=== PATIENT | female | born 1970 | race Caucasian/White ===

== ENCOUNTER 2017-10-25 10:09 | Inpatient (IN) | payer OTHER ==
[~2017-10-25 10:09] MED LIST: SOD CHLORIDE 0.9% 1,000 ML IV; VANCOMYCIN 1 GM 250 ML IVPB
[2017-10-25 11:38] LABS: ADD MAN DIFF? NO
[2017-10-25 11:47] LABS: BASOPHILS % 0.6 % (0.0-2.0); EOSINOPHILS # 0.2 10^3/ul (0.0-0.5); EOSINOPHILS % 2.5 % (0.0-7.0); HEMATOCRIT 37.3 % (37.0-47.0); HEMOGLOBIN 12.5 g/dl (12.0-16.0); LYMPHOCYTES # 2.4 10^3/ul (0.8-2.9); LYMPHOCYTES % 35.7 % (15.0-51.0); MEAN CORPUSCULAR HEMOGLOBIN 30.3 pg (29.0-33.0); MEAN CORPUSCULAR HGB CONC 33.5 g/dl (32.0-37.0); MEAN CORPUSCULAR VOLUME 90.5 fl (82.0-101.0); MONOCYTE # 0.6 10^3/ul (0.3-0.9); MONOCYTES % 9.3 % (0.0-11.0); NEUTROPHIL # 3.5 10^3/ul (1.6-7.5); NEUTROPHILS % 51.8 % (39.0-77.0); PLATELET COUNT 340 10^3/UL (140-415); RED BLOOD COUNT 4.12 10^6/ul (4.20-5.40); RED CELL DISTRIBUTION WIDTH 11.9 % (11.5-14.5)
[2017-10-25 11:47] LABS: WHITE BLOOD COUNT 6.8 10^3/ul (4.8-10.8)
[2017-10-25 12:04] LABS: ALANINE AMINOTRANSFERASE 27 IU/L (13-69); ALBUMIN 3.8 g/dl (3.3-4.9); ALBUMIN/GLOBULIN RATIO 1.31; ALKALINE PHOSPHATASE 56 IU/L (42-121); ANION GAP 10 (8-16); ASPARTATE AMINO TRANSFERASE 21 IU/L (15-46); BILIRUBIN,INDIRECT 0.6 mg/dl (0-1.1); BILIRUBIN,TOTAL 0.6 mg/dl (0.2-1.3); BLOOD UREA NITROGEN 14 mg/dl (7-20); CALCIUM 8.9 mg/dl (8.4-10.2); CARBON DIOXIDE 27 mmol/L (21-31); CHLORIDE 108 mmol/L (97-110); CREATININE 0.56 mg/dl (0.44-1.00); GLUCOSE 92 mg/dl (70-220); POTASSIUM 3.8 mmol/L (3.5-5.1); SODIUM 141 mmol/L (135-144); TOTAL PROTEIN 6.7 g/dl (6.1-8.1)
[2017-10-25 12:05] LABS: INR 0.97
[2017-10-25 12:07] LABS: PARTIAL THROMBOPLASTIN TIME 27.8 Sec (25.0-35.0)
[2017-10-25] MEDS ORDERED: FENTAnyl 50 MCG/ML VIAL (13:53)
[2017-10-25] MEDS ORDERED: ROCURONIUM 50 MG INJ (13:57)
[2017-10-25] MEDS ORDERED: PROPOFOL 20 ML (13:58)
[2017-10-25] MEDS ORDERED: LIDOCAINE 2% (SDV) 5 ML INJ (13:58)
[2017-10-25] MEDS ORDERED: DEXAMETHASONE 4 MG/ML 1 ML INJ (13:59)
[2017-10-25] MEDS ORDERED: CEFAZOLIN 1 GM INJ (13:59)
[2017-10-25] MEDS ORDERED: ONDANSETRON 4 MG INJ (13:59)
[2017-10-25] MEDS ORDERED: SUGAMMADEX SODIUM 200 MG/2 ML VIAL IV (14:00)
[2017-10-25] MEDS ORDERED: ACETAMINOPHEN 1000MG/100ML IV 100 ML (14:06)
[2017-10-25] MEDS ORDERED: HYDROmorphONE 2 MG/ML SYG (14:07)
[2017-10-25] MEDS ORDERED: MIDAZOLAM 1 MG/ML 2 ML INJ (14:31)
[2017-10-25] MEDS ORDERED: CLINDAMYCIN 600 MG/D5W (PMX) 50 ML IVPB (14:49)
[2017-10-25] MEDS ORDERED: GLYCOPYRROLATE 0.4 MG INJ (15:12)
[2017-10-25] MEDS ORDERED: EPHEDrine SULFATE 50 MG/5 ML SYG (15:16)
[2017-10-25] MEDS ORDERED: DIPHENHYDRAMINE 50 MG INJ IV (16:30)
[2017-10-25] MEDS ORDERED: ONDANSETRON 4 MG INJ IV ×2 (16:30)
[2017-10-25] MEDS ORDERED: HYDROmorphONE 0.2 MG/ML PCA IV (16:30)
[2017-10-25] MEDS ORDERED: FENTAnyl 50 MCG/ML VIAL IV ×2 (16:30)
[2017-10-25] MEDS ORDERED: HYDROmorphONE 1 MG/5 ML IV SYRINGE IV ×2 (16:30)
[2017-10-25] MEDS ORDERED: morphine 1 MG/ML 30 ML (PCA) IV ×2 (16:30)
[2017-10-25] MEDS ORDERED: NALOXONE (0.4 MG/ML) INJ IV (16:30)
[2017-10-25] MEDS: METOCLOPRAMIDE 10 MG INJ IV (16:47)
[2017-10-25] MEDS: ONDANSETRON 4 MG INJ IV ×2 (16:48→22:13)
[2017-10-25] MEDS: KETOROLAC 30 MG INJ IV ×3 (16:49→22:13)
[2017-10-25] MEDS ORDERED: HALOPERIDOL 5 MG INJ IV (17:00)
[2017-10-25] MEDS: HYDROmorphONE 0.2 MG/ML PCA IV (17:25)
[2017-10-25] MEDS: D5W-0.45 NACL + KCL 20 MEQ 1,000 ML IV (18:23)
[2017-10-26] MEDS: D5W-0.45 NACL + KCL 20 MEQ 1,000 ML IV ×5 (00:11→21:44)
[2017-10-26] MEDS: ACETAMINOPHEN 1000MG/100ML IV 100 ML IVPB ×2 (00:11→07:42)
[2017-10-26] MEDS: KETOROLAC 30 MG INJ IV ×3 (05:10→22:54)
[2017-10-26] MEDS: METOCLOPRAMIDE 10 MG INJ IV (05:10)
[2017-10-26] MEDS: ONDANSETRON 4 MG INJ IV (07:43)
[2017-10-26 11:44] LABS: ADD MAN DIFF? NO
[2017-10-26 11:48] LABS: ABNORMAL IP MESSAGE 1; BASOPHILS % 0.1 % (0.0-2.0); HEMATOCRIT 36.6 % (37.0-47.0); HEMOGLOBIN 12.3 g/dl (12.0-16.0); LYMPHOCYTES # 2.1 10^3/ul (0.8-2.9); MEAN CORPUSCULAR HEMOGLOBIN 30.9 pg (29.0-33.0); MEAN CORPUSCULAR HGB CONC 33.6 g/dl (32.0-37.0); MEAN PLATELET VOLUME 10.4 fl (7.4-10.4); MONOCYTE # 1.8 10^3/ul (0.3-0.9); MONOCYTES % 10.1 % (0.0-11.0); NEUTROPHIL # 13.4 10^3/ul (1.6-7.5); NEUTROPHILS % 77.4 % (39.0-77.0); PLATELET COUNT 370 10^3/UL (140-415); RED BLOOD COUNT 3.98 10^6/ul (4.20-5.40); RED CELL DISTRIBUTION WIDTH 11.8 % (11.5-14.5)
[2017-10-26 11:48] LABS: WHITE BLOOD COUNT 17.3 10^3/ul (4.8-10.8)
[2017-10-26 12:07] LABS: PARTIAL THROMBOPLASTIN TIME 25.2 Sec (25.0-35.0); PROTIME 13.3 Sec (11.9-14.9)
[2017-10-26 12:13] LABS: ANION GAP 10 (8-16); CALCIUM 8.9 mg/dl (8.4-10.2); CARBON DIOXIDE 27 mmol/L (21-31); CHLORIDE 108 mmol/L (97-110); CREATININE 0.55 mg/dl (0.44-1.00); GLUCOSE 95 mg/dl (70-220); MAGNESIUM 1.9 mg/dl (1.7-2.5); PHOSPHORUS 3.2 mg/dl (2.5-4.9); POTASSIUM 3.9 mmol/L (3.5-5.1); SODIUM 141 mmol/L (135-144)
[2017-10-26 12:26] LABS: BLOOD UREA NITROGEN 5 mg/dl (7-20)
[2017-10-27] MEDS: KETOROLAC 30 MG INJ IV ×2 (04:20→12:14)
[2017-10-27 05:38] LABS: ADD MAN DIFF? NO
[2017-10-27 05:52] LABS: WHITE BLOOD COUNT 11.7 10^3/ul (4.8-10.8)
[2017-10-27 05:53] LABS: BASOPHIL # 0.1 10^3/ul (0.0-0.1); BASOPHILS % 0.6 % (0.0-2.0); EOSINOPHILS # 0.1 10^3/ul (0.0-0.5); EOSINOPHILS % 0.8 % (0.0-7.0); HEMATOCRIT 35.1 % (37.0-47.0); HEMOGLOBIN 11.7 g/dl (12.0-16.0); LYMPHOCYTES # 3.7 10^3/ul (0.8-2.9); LYMPHOCYTES % 31.6 % (15.0-51.0); MEAN CORPUSCULAR HEMOGLOBIN 30.7 pg (29.0-33.0); MEAN CORPUSCULAR HGB CONC 33.3 g/dl (32.0-37.0); MEAN CORPUSCULAR VOLUME 92.1 fl (82.0-101.0); MEAN PLATELET VOLUME 10.5 fl (7.4-10.4); MONOCYTES % 8.3 % (0.0-11.0); NEUTROPHIL # 6.9 10^3/ul (1.6-7.5); NEUTROPHILS % 58.4 % (39.0-77.0); PLATELET COUNT 335 10^3/UL (140-415); RED BLOOD COUNT 3.81 10^6/ul (4.20-5.40)
[2017-10-27 06:03] LABS: PROTIME 13.3 Sec (11.9-14.9)
[2017-10-27 06:04] LABS: PARTIAL THROMBOPLASTIN TIME 26.7 Sec (25.0-35.0)
[2017-10-27 06:16] LABS: ANION GAP 9 (8-16); BLOOD UREA NITROGEN 6 mg/dl (7-20); CALCIUM 8.7 mg/dl (8.4-10.2); CARBON DIOXIDE 26 mmol/L (21-31); CHLORIDE 111 mmol/L (97-110); CREATININE 0.56 mg/dl (0.44-1.00); GLUCOSE 93 mg/dl (70-220); MAGNESIUM 1.9 mg/dl (1.7-2.5); PHOSPHORUS 2.9 mg/dl (2.5-4.9); POTASSIUM 3.7 mmol/L (3.5-5.1); SODIUM 142 mmol/L (135-144)
[2017-10-27] MEDS: D5W-0.45 NACL + KCL 20 MEQ 1,000 ML IV ×3 (08:11→23:58)
[2017-10-27] MEDS: HYDROCODONE/APAP (5/325) TAB PO (21:20)
[2017-10-28] MEDS: HYDROCODONE/APAP (5/325) TAB PO ×3 (06:14→22:28)
[2017-10-28] MEDS: D5W-0.45 NACL + KCL 20 MEQ 1,000 ML IV ×2 (08:11→16:11)
[2017-10-28 09:23] LABS: ADD MAN DIFF? NO
[2017-10-28 09:27] LABS: BASOPHILS % 0.4 % (0.0-2.0); EOSINOPHILS # 0.2 10^3/ul (0.0-0.5); EOSINOPHILS % 1.9 % (0.0-7.0); HEMATOCRIT 39.5 % (37.0-47.0); HEMOGLOBIN 13.1 g/dl (12.0-16.0); LYMPHOCYTES # 2.7 10^3/ul (0.8-2.9); LYMPHOCYTES % 30.5 % (15.0-51.0); MEAN CORPUSCULAR HEMOGLOBIN 30.3 pg (29.0-33.0); MEAN CORPUSCULAR HGB CONC 33.2 g/dl (32.0-37.0); MEAN CORPUSCULAR VOLUME 91.4 fl (82.0-101.0); MEAN PLATELET VOLUME 10.1 fl (7.4-10.4); MONOCYTE # 0.9 10^3/ul (0.3-0.9); MONOCYTES % 9.6 % (0.0-11.0); NEUTROPHIL # 5.1 10^3/ul (1.6-7.5); NEUTROPHILS % 57.4 % (39.0-77.0); PLATELET COUNT 366 10^3/UL (140-415); RED BLOOD COUNT 4.32 10^6/ul (4.20-5.40); RED CELL DISTRIBUTION WIDTH 11.9 % (11.5-14.5)
[2017-10-28 09:27] LABS: WHITE BLOOD COUNT 8.9 10^3/ul (4.8-10.8)
[2017-10-28 09:51] LABS: INR 0.93; PROTIME 12.6 Sec (11.9-14.9)
[2017-10-28 09:52] LABS: ANION GAP 12 (8-16); BLOOD UREA NITROGEN 10 mg/dl (7-20); CALCIUM 9.2 mg/dl (8.4-10.2); CARBON DIOXIDE 27 mmol/L (21-31); CHLORIDE 103 mmol/L (97-110); CREATININE 0.61 mg/dl (0.44-1.00); GLUCOSE 116 mg/dl (70-220); MAGNESIUM 1.8 mg/dl (1.7-2.5); PARTIAL THROMBOPLASTIN TIME 29.1 Sec (25.0-35.0); POTASSIUM 3.6 mmol/L (3.5-5.1); SODIUM 138 mmol/L (135-144)
[2017-10-28] MEDS: MINERAL OIL 30ML CUP PO (13:09)
[2017-10-28] MEDS: MAGNESIUM HYDROXIDE 30ML CUP PO (16:17)
[2017-10-29] MEDS: D5W-0.45 NACL + KCL 20 MEQ 1,000 ML IV ×2 (00:11→08:11)
[2017-10-29] MEDS: HYDROCODONE/APAP (5/325) TAB PO ×2 (08:53→14:52)
[2017-10-29] MEDS: MAGNESIUM HYDROXIDE 30ML CUP PO (12:53)
== END 2017-10-29 14:56 | disposition home or self-care (01) | DRG 358 ==
LOC: SDS 10:09 → MS1 18:17 → SDS 16:12 → MS1 16:15
PROC: 0WBH0ZX Excision of Retroperitoneum, Open Approach, Diagnostic (ICD-10-PCS; principal; 2017-10-25 13:00)
DX: D20.0 Benign neoplasm of soft tissue of retroperitoneum (principal); E78.5 Hyperlipidemia, unspecified; D72.829 Elevated white blood cell count, unspecified; Z90.710 Acquired absence of both cervix and uterus
CPT/HCPCS: 71045; 80048; 80053; 83735; 84100; 84703; 85025; 85610; 85730; 87086; 88307; 93005

== ENCOUNTER 2017-11-03 11:23 | Emergency (ER) | payer OTHER | END 2017-11-03 13:20 | disposition home or self-care (01) | LOC: FTE 11:23 | DX: T81.4XXA Infection following a procedure, initial encounter (principal); L03.311 Cellulitis of abdominal wall; Y73.3 Surgical instruments, materials and gastroenterology and urology devices (including sutures) associated with adverse incidents | CPT/HCPCS: 99283; Z7502 ==